=== PATIENT | female | born 1965 | race Caucasian/White ===

== ENCOUNTER 2017-02-28 08:37 | Outpatient (RCR) | payer BC, SELFPAY ==
--- NOTE | 2017-02-28 13:51 | BH.SGPN_ITS ---
Service Group Progress Note - Session Psychotherapy Session #2 Date Open:: 02/28/17 - group members Time Started:: 10:10 Time Stopped:: 11:03 Targeted Problem #:: 1 Type of Group:: Illness Management Goal of Group:: The goal of group was to increase understanding of goals and goal setting and practice a method of goal setting. Client Response/Progress/Benefit:: Client responded well to session, passive participant at times. Client reported goals give people direction and something to work toward. Client helped group set realistic goals during the activity by sharing insight to ?set small goals and work up from there.? Client appeared to benefit from increasing awareness of SMART goal setting as well as practicing in the moment coping skills. Eye Contact:: Fair Motor Activity:: Appropriate Appearance:: Neat Speech:: Appropriate Mood:: Dysthymic Affect:: Constricted Thoughts:: Linear, No evidence of hallucinations/delusions noted Staff Interventions:: Therapist facilitated group discussion about goals and goal setting. Therapist taught group the acronym SMART (Specific, Measurable, Achievable, Relevant, Timely) as a tool to help with goal setting. Therapist led the group in an activity to be used as a method of practicing goal setting. Therapist provided the group with a small beach ball and explained their goal was to keep the ball in the air for as long as possible. Therapist guided the group through the SMART acronym as group was participating in activity. Psychotherapy Session #3 Date Open:: 02/28/17 - group members Time Started:: 11:10 Time Stopped:: 12:10 Targeted Problem #:: 1 Type of Group:: Functional Skills Development Goal of Group:: The goal of group was to identify a goal for the week, explore the potential barriers to achieving that set goal, and identify strategies to overcome barriers. Client Response/Progress/Benefit:: Client responded well to session, active participant. Client created a weekly goal of communicating with three support people. Client shared this goal will benefit client as she tends to isolate and withdraw from supports when feeling depressed. Client identified her barriers as negative thinking, holding in thoughts and opinions, and avoidance. Client created strategies to overcome these barriers such as coming to IOP and ? forcing myself to talk more in group? as client reports feeling better when she communicates. Client appeared to benefit from creating a weekly goal and establishing strategies to overcome barriers. Client seems to be progressing with increased awareness of barriers and how they have kept client stuck in the past. Client also appears to be progressing as shown by her report of recognizing her early warning signs and coming back to IOP. Eye Contact:: Good Motor Activity:: Appropriate Appearance:: Neat Speech:: Appropriate Mood:: Dysthymic Affect:: Constricted Thoughts:: Linear, No evidence of hallucinations/delusions noted Staff Interventions:: Therapist explained goal setting activity to group. Therapist provided each group member with a piece of paper and asked them to write down a goal they would like to accomplish over the weekend. Therapist then asked each member to draw a path to their goal and identify barriers that could potentially get in the way of their goal. Therapist led group in processing their goal maps and had them come up with strategies to overcome the barriers. Therapist provided support by using reflective listening.
--- NOTE | 2017-02-28 14:26 | BH.SGPN ---
Service Group Progress Note - Session Psychotherapy Session #1 Date Open:: 02/28/17 Time Started:: 09:07 Time Stopped:: 10:01 Targeted Problem #:: 1 Type of Group:: Process - 5 participants
--- NOTE | 2017-03-02 15:17 | BH.SGPN ---
Service Group Progress Note - Session Psychotherapy Session #2 Date Open:: 03/02/17 group members Time Started:: 10:20 Time Stopped:: 11:15 Targeted Problem #:: 1 Type of Group:: Illness Management Goal of Group:: To increase understanding of resilience and identify the factors that contribute to building resilience. Client Response/Progress/Benefit:: Client responded well to session, active participant. Client processed the quote nodding in agreement to peers comments. Client helped the group identify factors of resiliency such as self-awareness, courage, and confidence. Client shared she has increased her self-awareness and is working to allow myself to feel and cope with emotions. Client expressed being resilient means having the courage to ask for help. Client reported that resiliency is something that is learned and developed over time as one overcomes and bounces back from hardships. Client appeared to benefit from increasing her awareness of the resiliency factors. Client progressing as shown by her report of increased emotional awareness and acceptance of help. Eye Contact:: Good Motor Activity:: Appropriate Appearance:: Neat Speech:: Appropriate Mood:: Depressed Affect:: Constricted Thoughts:: Linear, No evidence of hallucinations/delusions noted Staff Interventions:: Therapist led group in an activity that would induce a chaotic environment and used the activity as a tool in discussing the various stressors people are faced with each day. Therapist facilitated group discussion about resilience and explained the factors of building resilience. Therapist led discussion about factors that contribute to resilience. Therapist provided support by using active listening and providing feedback. Psychotherapy Session #3 Date Open:: 03/02/17 group members Time Started:: 11:21 Time Stopped:: 12:11 Targeted Problem #:: 1 Type of Group:: Functional Skills Development Goal of Group:: To rehearse resilient factors and identify ways to maintain resilience despite hardships and stressors. Client Response/Progress/Benefit:: Client responded well to session, active participant. Client identified her personal resiliency factors as being motivated to change, having awareness of warning signs and triggers, and learning to accept change. Client was receptive to supportive statements given by therapist and peers on additional resiliency traits client possesses. Client acknowledged that recognizing her warning sings early and returning to IOP demonstrates resiliency. Client wrote her personal resiliency traits on her stress ball to remind client of how she can remain resilient despite hardships. Client appeared to benefit from identifying ways in which client has demonstrated resiliency. Client progressing as evidenced by her report of increased awareness of warning signs and motivation to improve emotional regulation, but can continue to benefit from consistency and setting boundaries. Eye Contact:: Good Motor Activity:: Appropriate Appearance:: Neat Speech:: Appropriate Mood:: Depressed Affect:: Constricted Thoughts:: Linear, No evidence of hallucinations/delusions noted Staff Interventions:: Therapist led group in an activity in which group members were challenged to stay resilient despite various stressors and hardships added to activity. Therapist provided each group member with a stress ball and used stress ball as a tool to discuss factors of resilient personality. Therapist provided group members with a handout about the building blocks of resilience. Therapist provided support by using reflective listening.
--- NOTE | 2017-03-02 16:15 | BH.SGPN ---
Service Group Progress Note - Session Psychotherapy Session #1 Date Open:: 03/02/17 Time Started:: 09:09 Time Stopped:: 10:15 Targeted Problem #:: 1 Type of Group:: Process - 10 participants
--- NOTE | 2017-03-03 10:19 | BH.SGPN_ITS ---
Service Group Progress Note - Session Psychotherapy Session #2 Date Open:: 03/02/17 group members Time Started:: 10:20 Time Stopped:: 11:15 Targeted Problem #:: 1 Type of Group:: Illness Management Goal of Group:: To increase understanding of resilience and identify the factors that contribute to building resilience. Client Response/Progress/Benefit:: Client responded well to session, active participant. Client processed the quote nodding in agreement to peers? comments. Client helped the group identify factors of resiliency such as self- awareness, courage, and confidence. Client shared she has increased her self- awareness and is working to ?allow myself to feel and cope with emotions.? Client expressed being resilient means having the courage to ask for help. Client reported that resiliency is something that is learned and developed over time as one overcomes and bounces back from hardships. Client appeared to benefit from increasing her awareness of the resiliency factors. Client progressing as shown by her report of increased emotional awareness and acceptance of help. Eye Contact:: Good Motor Activity:: Appropriate Appearance:: Neat Speech:: Appropriate Mood:: Depressed Affect:: Constricted Thoughts:: Linear, No evidence of hallucinations/delusions noted Staff Interventions:: Therapist led group in an activity that would induce a chaotic environment and used the activity as a tool in discussing the various stressors people are faced with each day. Therapist facilitated group discussion about resilience and explained the factors of building resilience. Therapist led discussion about factors that contribute to resilience. Therapist provided support by using active listening and providing feedback. Psychotherapy Session #3 Date Open:: 03/02/17 group members Time Started:: 11:21 Time Stopped:: 12:11 Targeted Problem #:: 1 Type of Group:: Functional Skills Development Goal of Group:: To rehearse resilient factors and identify ways to maintain resilience despite hardships and stressors. Client Response/Progress/Benefit:: Client responded well to session, active participant. Client identified her personal resiliency factors as being motivated to change, having awareness of warning signs and triggers, and learning to accept change. Client was receptive to supportive statements given by therapist and peers on additional resiliency traits client possesses. Client acknowledged that recognizing her warning sings early and returning to IOP demonstrates resiliency. Client wrote her personal resiliency traits on her stress ball to remind client of how she can remain resilient despite hardships. Client appeared to benefit from identifying ways in which client has demonstrated resiliency. Client progressing as evidenced by her report of increased awareness of warning signs and motivation to improve emotional regulation, but can continue to benefit from consistency and setting boundaries. Eye Contact:: Good Motor Activity:: Appropriate Appearance:: Neat Speech:: Appropriate Mood:: Depressed Affect:: Constricted Thoughts:: Linear, No evidence of hallucinations/delusions noted Staff Interventions:: Therapist led group in an activity in which group members were challenged to stay resilient despite various stressors and hardships added to activity. Therapist provided each group member with a stress ball and used stress ball as a tool to discuss factors of resilient personality. Therapist provided group members with a handout about the building blocks of resilience. Therapist provided support by using reflective listening.
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
--- NOTE | 2017-03-04 13:11 | BH.DR.ITP ---
Initial Treatment Plan - Patient Information Visit Information: ADMISSION DATE: EXPECTED LOS: 4-6 weeks Diagnoses:: Bipolar disorder of 31.9. Borderline personality disorder - Problems/Symptoms Problem #1:: Mood symptoms Symptom:: Depression, anhedonia, isolative behavior, biologic disruption of sleep and appetite, suicidal ideation Problem #2:: Anxiety Symptom:: Rumination, panic
--- NOTE | 2017-03-04 14:57 | BH.SGPN ---
Service Group Progress Note - Session Psychotherapy Session #3 Date Open:: 03/04/17 Time Started:: 11:20 Time Stopped:: 12:16 Targeted Problem #:: 1 Type of Group:: Functional Skills Development - 7 participants Goal of Group:: To identify ways of defeating cognitive distortions and rehearse defeating the identified cognitive distortion. Staff Interventions:: Therapist utilized an activity as a tool in helping clients connect the amount of effort one will need to put forth to defeat cognitive distortions. Therapist provided group members with a handout to use as an aid when trying to defeat their unhelpful thinking. Therapist processed the worksheet with group members, helping them reframe the cognitive distortions.
--- NOTE | 2017-03-04 15:29 | BH.MDN ---
Multi-Disciplinary Note - Note 45-min Individual Time Started:: 09:00 Date: 03/04/17 Time Stopped:: 09:45
--- NOTE | 2017-03-07 10:36 | BH.SGPN_ITS ---
Service Group Progress Note - Session Psychotherapy Session #1 Date Open:: 18 - 9 group members Time Started:: 09:00 Time Stopped:: 10:02 Targeted Problem #:: 1 Type of Group:: Process Goal of Group:: The goal of today's group was to check-in with client's mood, stressors, and positives, and introduce topic for the day. Client Response/Progress/Benefit:: Client responded well to session, quiet, but participating when prompted by therapist. Client reports feeling ?emotional? today as client had a busy weekend. Client stated her daughter had a gender reveal democrat this weekend and client wanted to ?be happy? but felt ?numb.? With therapist elicitation, client identified cognitive distortions that are exacerbating her depressed mood such as using shoulds and coulds. Client reported isolation is a warning sign for increased depression, so client plans to spend time with positive supports this week. Client stated when she makes herself be social it feels like I'm wearing a mask which client described as exhausting. Although client feels tired from using opposite action, she stated reaching out to supports has a better outcome for client's mental wellness than isolation. Client seemed to benefit from challenging cognitive distortions and setting small goals. Eye Contact:: Fair Motor Activity:: Appropriate Appearance:: Neat Speech:: Soft Mood:: Dysthymic Affect:: Constricted Thoughts:: Linear, No evidence of hallucinations/delusions noted Staff Interventions:: Therapist used open-ended questions to elicit information about client's current stressors and mood state. Therapist was supportive by using active listening and reflection.
--- NOTE | 2017-03-07 10:40 | BH.SGPN ---
Service Group Progress Note - Session Psychotherapy Session #2 Date Open:: 03/07/17 Time Started:: 10:12 Time Stopped:: 11:12 Targeted Problem #:: 1 Type of Group:: Illness Management - 10 participants Psychotherapy Session #3 Date Open:: 03/07/17 Time Started:: 11:19 Time Stopped:: 12:20 Targeted Problem #:: 1 Type of Group:: Functional Skills Development - 8 participants
--- NOTE | 2017-03-07 15:26 | BH.MTP ---
[facility] Treatment Plan - Patient Information Program Physician:: Dr. FARIDA Piedra Primary Therapist:: Rosamaria Sandoval [facility] - Psychiatric Diagnoses Psychiatric Diagnoses:: Bipolar disorder F 31.9. Borderline personality disorder. PTSD. Anxiety unspecified. History of disordered eating. Diagnosis Code(s):: F 31.9 - Estimated LOS Estimated LOS (in weeks):: 6 Problem/Goal #1 - Problem/Goal #1 Stated Goal:: Client will increase mood stability, decrease depressive symptoms, and suicidal ideation due to Bipolar disorder through Intensive Outpatient Program. 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 Functional Impact: Pt's depressive and anxious symptoms are impacting ability to perform her work duties at [employer] due to increased stress with increased difficulty using healthy skills. Pt's social and familial relationships are strained due to pt having increased anxiety and depression in the evening which is resulting in pt taking her sleep medications in the early evening to avoid dealing with symptoms. Pt's increased isolative behavior also contributes to strain on relationships. Goal Relevant Strengths/Supports: Pt is intelligent, good self-awareness, and motivated to make changes. Pt has a supportive family. - Objectives Objective #1 Stated Objective: Client will identify and replace 2-3 negative thinking patterns that mediate feelings of hopelessness and helplessness. Interventions: Through groups and individual therapy, pt will be provided with education on cognitive distortions, mistaken beliefs, and identifying and combating negative self-talk. Therapist will help pt explore connection between thoughts, feelings, and actions. Discharge Criteria: Pt will be able to identify 2-3 negative thinking patterns and be able to effectively stop, challenge, or cope with those negative thoughts Target Date: 04/18/17 Review Date: 03/21/17 Objective #2 Stated Objective: Client will learn and implement 2-3 effective communication skills to empower client to communicate thoughts and feelings. Interventions: Therapist will teach client effective communication skills and will provide homework for client to practice communication skills outside of sessions. Discharge Criteria: Client will have met this objective when she can implement 2-3 effective communication skills that have empowered client to communicate thoughts and feelings. Target Date: 04/18/17 Review Date: 03/21/17 Problem/Goal #2 - Problem/Goal #2 Stated Goal:: Stabilize anxiety level while increasing ability to function and decreasing ruminative thoughts on a daily basis through Intensive Outpatient Program. 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 Functional Impact: Pt's depressive and anxious symptoms are impacting ability to perform her work duties at [employer] due to increased stress with increased difficulty using healthy skills. Pt's social and familial relationships are strained due to pt having increased anxiety and depression in the evening which is resulting in pt taking her sleep medications in the early evening to avoid dealing with symptoms. Pt's increased isolative behavior also contributes to strain on relationships. Goal Relevant Strengths/Supports: Pt is intelligent, good self-awareness, and motivated to make changes. Pt has a supportive family. - Objectives Objective #1 Stated Objective: Client will identify 2-3 coping strategies to use when feeling overwhelmed and anxious. Interventions: Therapist will help client process triggers to increased symptoms, and then identify ways to manage these feelings and thoughts. Therapist will also work on helping client feel less isolated and understand better behaviors and escalating tendencies. Discharge Criteria: Client will have met this goal when can safely use 1-2 coping strategies when feeling overwhelmed. Target Date: 04/18/17 Review Date: 03/21/17
--- NOTE | 2017-03-09 14:56 | BH.SGPN_ITS ---
Service Group Progress Note - Session Psychotherapy Session #1 Date Open:: 18 - 8 group members Time Started:: 09:05 Time Stopped:: 10:00 Targeted Problem #:: 1 Type of Group:: Process Goal of Group:: The goal of today's group was to check-in with client's mood, stressors, and positives, review homework, and to introduce the topic of the day. Client Response/Progress/Benefit:: Client responded well to session, quiet, but participating when prompted by therapist. Client reports feeling ?crummy? today as client is ?physically and mentally drained.? Client shared she has been struggling with negative thoughts and a depressed mood which leads client to want to isolate. Client stated she has been ?forcing? herself to spend time with others which helps to alleviate her symptoms temporarily. Client was receptive to emotional support given by therapist and peers. Client appeared to benefit from gaining awareness of how healthy versus unhealthy coping skills impact mental health. Client seems to be progressing as shown by her increases insight to warning signs and triggers, but can continue to benefit from challenging negative thoughts. Eye Contact:: Fair Motor Activity:: Appropriate Appearance:: Neat Speech:: Appropriate Mood:: Dysthymic Affect:: Flat Thoughts:: Linear, No evidence of hallucinations/delusions noted Staff Interventions:: Therapist used open-ended questions to elicit information about client's current stressors and mood. Therapist was supportive by using active listening and reflection.
--- NOTE | 2017-03-09 15:14 | BH.MDN ---
Multi-Disciplinary Note - Note 45-min Individual Time Started:: 12:30 Date: 03/09/17 Purpose of session/treatment goals addressed:: Purpose of session was to assess current symptoms and stressors. Other topics: reviewed homework from last week, challenging negative thoughts, healthy coping skills. Eye Contact:: Fair Motor Activity:: Restless - shaking leg Appearance:: Neat Speech:: Appropriate Mood:: Anxious, Depressed, Other - tearful at times Affect:: Constricted Thoughts:: Linear, No evidence of hallucinations/delusions noted Staff Interventions:: Therapist reviewed pt's homework, processing what went well and barriers that impacted pt being able to complete all her homework. Therapist used open ended questions to elicit pt's current symptoms and stressors. Therapist gently challenged pt's distorted thought patterns. Provided psychoeducation about impact of thought patterns on emotions. Provided support by using active listening and validating emotions. Client Response:: Pt responded well to session AEB being open minded and expressing thoughts and emotions. Pt reported she did get most of her homework assignments completed by doing her thought journal, trying crosswords, and word searches. She shared she also has been working with [employer] to reduce her work load and set boundaries with a particularly difficult case. Pt reported her evenings continue to be difficult with her feeling extremely anxious, antsy, and feels like Im crawling out of my skin. Pt reported she has noticed she has been taking her nighttime medications earlier and earlier each night just to escape. Recognizes this is not healthy for her because she is going to bed before 8pm and waking up before midnight and is up the rest of the night. Pt became tearful when talking about how exhausted she is of how bad her evenings are going. With further discussion pt able to connect she starts to worry about how bad the evenings will be during midday and is already worked up before the evening starts. Pt open to challenging her distorted thought patterns, asking to do board games and take a walk at night. Pt also has insight that watching her grandkids twice a week is currently exhausting her and putting her in worse shape for when evening comes. Pt open to the idea of taking a break from watching the kids until she is feeling emotionally stable. Risks/Concerns:: Pt reports passive thoughts of , denies plan or intention to date. Pt's family serves as a protective factor for pt. Progress Toward Goals/Plan:: Pt progress variable. Pt showing progress with attempting to use healthy coping skills, but struggles at times with following through with using new coping skills. Pt depressive symptoms seem to worsen at night and pt attempting to avoid feeling by taking her medications early in the evening. Pt to continue IOP to help decrease anxious and depressive symptoms. Time Stopped:: 13:15
--- NOTE | 2017-03-10 13:55 | BH.SGPN_ITS ---
Service Group Progress Note - Session Psychotherapy Session #1 Date Open:: 03/10/17 Time Started:: 09:05 Time Stopped:: 10:00 Targeted Problem #:: 1 Type of Group:: Process - 4 group members Goal of Group:: The goal of today's group was to check-in with client's mood, stressors, and positives, review homework and introduce topic for the day. Client Response/Progress/Benefit:: Client reported she came to [facility] today because yesterday she sent a really bad day which seeped into this morning. Client recognizes that if she did not come to [facility] this morning then she would of had too much free time on her hand which likely will lead to more negative thinking. Client shared she was able to communicate to her daughter and [id number] that she needed a break from babysitting her grandchildren so that she can take care of herself. Client reported communicating this to her family was extremely difficult but she is starting to recognize the need to take care of herself so that she can take care of others. Client shared she had the goal of not going to bed until 9 PM but she was able to accomplish, however her dog started to bark at her at 11 PM and she has been up ever since. Client shared she was having nightmares last night which is something she has not experienced in a long time. Client demonstrating progress as evidenced by her increasing her communication skills to support people as well as recognizing her warning signs and taking action by helping herself instead of ignoring it. Eye Contact:: Fair Motor Activity:: Restless - Leg shaking Appearance:: Neat Speech:: Appropriate Mood:: Anxious, Depressed Affect:: Constricted Thoughts:: Linear, Logical, No evidence of hallucinations/delusions noted Staff Interventions:: Therapist used open-ended questions to elicit information about client's current stressors and mood state. Therapist was supportive by using active listening and reflection.
--- NOTE | 2017-03-11 14:08 | BH.SGPN ---
Service Group Progress Note - Session Psychotherapy Session #1 Date Open:: 03/11/17 Time Started:: 09:00 Time Stopped:: 09:51 Targeted Problem #:: 1 Type of Group:: Process - 7 Participants Goal of Group:: The goal of today's group was to check-in with client's mood, stressors, and positives, review homework, and to introduce the topic of the day. Client Response/Progress/Benefit:: Client entered session alert and attentive. Client shared how she has been experiencing a migraine that has been dragging her down and stating, I have a lot of anxiety and just want to stay at home and isolate. Client shared how her made plans to go out of town this weekend and she doesnt want to go but doesnt want to tell her that. She stated her sleep has been bad and her nightmares have returned. Client indicated her emotion as anxious and depressed. Client benefitted from group by discussing concerns with peers and receiving support in return. Limited progress noted due to clients report of increased isolation, however she plans on getting out this weekend. Continued treatment necessary to increase daily functioning. Eye Contact:: Good Motor Activity:: Appropriate Appearance:: Casual Speech:: Appropriate Mood:: Euthymic, Anxious Affect:: Full Thoughts:: Linear, Logical, No evidence of hallucinations/delusions noted Staff Interventions:: Therapist used open-ended questions to elicit information about client's current stressors and mood. Therapist was supportive by using active listening and reflection. Psychotherapy Session #2 Date Open:: 03/11/17 Time Started:: 10:05 Time Stopped:: 10:55 Targeted Problem #:: 1 Type of Group:: Illness Management - 8 Participants Goal of Group:: To increase understanding of pitfalls and impact can have on mental health. Client Response/Progress/Benefit:: Client entered session alert, attentive, and willing to engage. Client connected with the days quote stating, Coming to group this time was different. Its easier to stay at home and avoid everything but it wont help you, but reaching out to support will. Client participated in group discussion on pitfalls and participated in group activity designed to help understand the impact pitfalls can have on the self. Client successfully collaborated with peers to complete activity. Client benefitted from group by identifying strategies and understanding and reducing pitfalls. Progress noted in clients ability to recognize pitfalls in life. Continued treatment necessary to decrease isolative behavior. Eye Contact:: Good Motor Activity:: Appropriate Appearance:: Casual Speech:: Appropriate Mood:: Euthymic, Anxious Affect:: Full Thoughts:: Linear, Logical, No evidence of hallucinations/delusions noted Staff Interventions:: Therapist facilitated discussion about pitfalls and assisted group in identifying common pitfalls that can set you back. Therapist led group in an activity to help group understand impact pitfalls can have on oneself and identify strategies that could help you get back on the right path. Therapist provided support by using active listening and providing feedback.
--- NOTE | 2017-03-11 21:20 | BH.SGPN ---
Service Group Progress Note - Session Psychotherapy Session #3 Date Open:: 03/11/17 Time Started:: 11:07 Time Stopped:: 12:00 Targeted Problem #:: 1 Type of Group:: Functional Skills Development Goal of Group:: To identify personal pitfalls and what keeps them stuck from moving forward. Client Response/Progress/Benefit:: Pt listened attentively to others and contributed positively to discussion. Client identified personal pitfalls to include: Lack of communication to support people, negative thoughts, being a people pleaser, and lack of self-care. Client identified being a people pleaser to be the most impactful pitfall because she tends to put other people's needs and wants ahead of hers which then impacts her negatively in the long run. Client seemed to benefit from increasing awareness of personal pitfalls as well as son to think about what patient can do to avoid identified pitfalls. Eye Contact:: Fair Motor Activity:: Appropriate Appearance:: Neat Speech:: Appropriate Mood:: Anxious, Depressed Affect:: Constricted Thoughts:: Linear, Logical, No evidence of hallucinations/delusions noted Staff Interventions:: Therapist facilitated activity in which group members were given the task to identify personal pitfalls and what keeps them stuck from moving past the pitfall. Therapist provided group members with the homework assignment of identifying strategies that can help them overcome pitfalls.
--- NOTE | 2017-03-13 21:23 | BH.SGPN_ITS ---
Service Group Progress Note - Session Psychotherapy Session #3 Date Open:: 03/11/17 Time Started:: 11:07 Time Stopped:: 12:00 Targeted Problem #:: 1 Type of Group:: Functional Skills Development Goal of Group:: To identify personal pitfalls and what keeps them stuck from moving forward. Client Response/Progress/Benefit:: Pt listened attentively to others and contributed positively to discussion. Client identified personal pitfalls to include: Lack of communication to support people, negative thoughts, being a people pleaser, and lack of self-care. Client identified being a people pleaser to be the most impactful pitfall because she tends to put other people' s needs and wants ahead of hers which then impacts her negatively in the long run. Client seemed to benefit from increasing awareness of personal pitfalls as well as son to think about what patient can do to avoid identified pitfalls. Eye Contact:: Fair Motor Activity:: Appropriate Appearance:: Neat Speech:: Appropriate Mood:: Anxious, Depressed Affect:: Constricted Thoughts:: Linear, Logical, No evidence of hallucinations/delusions noted Staff Interventions:: Therapist facilitated activity in which group members were given the task to identify personal pitfalls and what keeps them stuck from moving past the pitfall. Therapist provided group members with the homework assignment of identifying strategies that can help them overcome pitfalls.
--- NOTE | 2017-03-14 11:20 | BH.SGPN_ITS ---
Service Group Progress Note - Session Psychotherapy Session #2 Date Open:: 03/09/17 Time Started:: 10:15 Time Stopped:: 11:07 Targeted Problem #:: 1 Type of Group:: Illness Management - 8 group members Goal of Group:: To increase understanding how positive and negative forces in life can impact balance in life. Client Response/Progress/Benefit:: Client listened attentively to others and was mostly quiet during discussion illness listened by therapist. Client appeared to connect with others comments about the need to put forth some effort in order to see personal growth because one is not just going to get better by chance. During activity client remained quiet for the majority of the challenge at times would communicate some of her ideas and thoughts. Client seemed to benefit from increasing awareness of the impact positive negative forces can have on ones progress as well as understanding the importance of having balance between forces. Eye Contact:: Fair Motor Activity:: Appropriate Appearance:: Neat Speech:: Appropriate Mood:: Depressed Affect:: Constricted Thoughts:: Linear, Logical, No evidence of hallucinations/delusions noted Staff Interventions:: Therapist facilitated group discussion about the various forces of life and helped clients connect the impact they have on balance in life. Therapist led group in an experiential activity in which group members had to work together to balance an object and move it to a designated location. Therapist utilized the activity as a tool to process the challenges connected with balancing various forces. Psychotherapy Session #3 Date Open:: 03/09/17 Time Started:: 11:17 Time Stopped:: 12:15 Targeted Problem #:: 1 Type of Group:: Functional Skills Development Goal of Group:: To identify positive and negative forces in life and identify which forces are helping stability and which forces are contributing to instability. Client Response/Progress/Benefit:: Client listened attentively to others and contributed if elicited by therapist. Client reported her positive forces to include communication, family, friends, using positive coping. Client reported her negative forces to include negative thoughts, isolation, not communicating, work, over commitment of time. Feeling that her forces are currently not balance with her negative forces being more powerful. Identified negative thoughts and not communicating to be her most impactful forces that are keeping her from making the progress she wants. Seemed to benefit from increasing awareness of her positive and negative forces as well as identifying which forces are currently having the greatest impact on her progress. Eye Contact:: Fair Motor Activity:: Appropriate Appearance:: Neat Speech:: Appropriate Mood:: Depressed Affect:: Constricted Thoughts:: Linear, Logical, No evidence of hallucinations/delusions noted Staff Interventions:: Therapist provided group with an example of a scenario of a person and the individual???s positive and negative forces. Therapist provided each group member with a worksheet in which they were to identify five positive and five negative forces in their life. Therapist processed the activity with the group, helping others connect the impact certain forces have on their life balance.
--- NOTE | 2017-03-14 14:03 | BH.SGPN ---
Service Group Progress Note - Session Psychotherapy Session #2 Date Open:: 03/14/17 - 7 group members Time Started:: 10:23 Time Stopped:: 11:20 Targeted Problem #:: 1 Type of Group:: Illness Management Goal of Group:: To identify the importance of change, increase understanding of difficulty of making change, identify what clients would like to make changes in and identify the barriers or obstacles that get in the way of change. Client Response/Progress/Benefit:: Client responded well to session, quiet, but participating when prompted. Client processed the quote, nodding in agreement to peers? comments. Client helped group identify difficulties associated with making change such as fear, avoidance, comfort, mental health, and anxiety. Client identified changes she would like to make this week such as setting boundaries at work, using thought-stopping, and practicing self-care. Client reported these changes would reduce stress and negative thinking. Client identified her barriers to be guilt, negative thoughts, and ?reliving? the past. Client appeared to benefit from gaining awareness of her barriers that prevent client from making changes as well as identifying changes that would positively impact her mental health and functioning. Client progressing with identifying small goals to improve mental health, but can continue to benefit from challenging negative thoughts. Eye Contact:: Good Motor Activity:: Appropriate Appearance:: Neat Speech:: Appropriate Mood:: Dysthymic Affect:: Constricted Thoughts:: Linear, No evidence of hallucinations/delusions noted Staff Interventions:: Therapist facilitated discussion about change and helped client?s make connections of why change is important. Therapist led group in an experiential activity which involved client?s identifying changes want to make and barriers that get in the way of making those changes. Therapist utilized activity as a tool to help client?s make connections of difficulties in making changes and identify what helps overcome barriers to change. Psychotherapy Session #3 Date Open:: 03/14/17 - 6 group members Time Started:: 11:28 Time Stopped:: 12:20 Targeted Problem #:: 1 Type of Group:: Functional Skills Development Goal of Group:: To identify specific barriers to an identified change want to make and identify ways to overcome those barriers. Client Response/Progress/Benefit:: Client responded well to session, providing good insight to group discussion. Client identified her goal this week as setting more boundaries at work. Client shared her barriers are negative thinking, procrastination, and guilt. Client created strategies to accomplish this change such as doing a cost benefit analysis of setting boundaries, practicing thought stopping strategies, and challenging guilt. Client seemed to benefit from developing strategies to overcome barriers so client can reach her goals. Client progressing with implementing thought challenging strategies, but can continue to benefit from managing her stress at work. Eye Contact:: Good Motor Activity:: Appropriate Appearance:: Neat Speech:: Appropriate Mood:: Dysthymic Affect:: Constricted Thoughts:: Linear, No evidence of hallucinations/delusions noted Staff Interventions:: Therapist facilitated discussion about what helped the group overcome challenges that came about during the experiential activity. Therapist utilized the activity as a tool in relating those experiences to ways to overcome barriers with challenges in their life when trying to make change. Therapist group into smaller groups and had them brainstorm ways to overcome certain barriers to their identified change. Therapist provided support by using reflective listening and providing feedback.
--- NOTE | 2017-03-14 15:26 | BH.MTP_ITS ---
Master Treatment Plan - Patient Information Program Physician:: Dr. FARIDA Piedra Primary Therapist:: Rosamaria Sandoval [facility] - Psychiatric Diagnoses Psychiatric Diagnoses:: Bipolar disorder F 31.9. Borderline personality disorder. PTSD. Anxiety unspecified. History of disordered eating. Diagnosis Code(s):: F 31.9 - Estimated LOS Estimated LOS (in weeks):: 6 Problem/Goal #1 - Problem/Goal #1 Stated Goal:: Client will increase mood stability, decrease depressive symptoms , and suicidal ideation due to Bipolar disorder through Intensive Outpatient Program. 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 Functional Impact: Pt's depressive and anxious symptoms are impacting ability to perform her work duties at [employer] due to increased stress with increased difficulty using healthy skills. Pt's social and familial relationships are strained due to pt having increased anxiety and depression in the evening which is resulting in pt taking her sleep medications in the early evening to avoid dealing with symptoms. Pt's increased isolative behavior also contributes to strain on relationships. Goal Relevant Strengths/Supports: Pt is intelligent, good self-awareness, and motivated to make changes. Pt has a supportive family. - Objectives Objective #1 Stated Objective: Client will identify and replace 2-3 negative thinking patterns that mediate feelings of hopelessness and helplessness. Interventions: Through groups and individual therapy, pt will be provided with education on cognitive distortions, mistaken beliefs, and identifying and combating negative self-talk. Therapist will help pt explore connection between thoughts, feelings, and actions. Discharge Criteria: Pt will be able to identify 2-3 negative thinking patterns and be able to effectively stop, challenge, or cope with those negative thoughts Target Date: 04/18/17 Review Date: 03/21/17 Objective #2 Stated Objective: Client will learn and implement 2-3 effective communication skills to empower client to communicate thoughts and feelings. Interventions: Therapist will teach client effective communication skills and will provide homework for client to practice communication skills outside of sessions. Discharge Criteria: Client will have met this objective when she can implement 2 -3 effective communication skills that have empowered client to communicate thoughts and feelings. Target Date: 04/18/17 Review Date: 03/21/17 Problem/Goal #2 - Problem/Goal #2 Stated Goal:: Stabilize anxiety level while increasing ability to function and decreasing ruminative thoughts on a daily basis through Intensive Outpatient Program. 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 Functional Impact: Pt's depressive and anxious symptoms are impacting ability to perform her work duties at [employer] due to increased stress with increased difficulty using healthy skills. Pt's social and familial relationships are strained due to pt having increased anxiety and depression in the evening which is resulting in pt taking her sleep medications in the early evening to avoid dealing with symptoms. Pt's increased isolative behavior also contributes to strain on relationships. Goal Relevant Strengths/Supports: Pt is intelligent, good self-awareness, and motivated to make changes. Pt has a supportive family. - Objectives Objective #1 Stated Objective: Client will identify 2-3 coping strategies to use when feeling overwhelmed and anxious. Interventions: Therapist will help client process triggers to increased symptoms , and then identify ways to manage these feelings and thoughts. Therapist will also work on helping client feel less isolated and understand better behaviors and escalating tendencies. Discharge Criteria: Client will have met this goal when can safely use 1-2 coping strategies when feeling overwhelmed. Target Date: 04/18/17 Review Date: 03/21/17
--- NOTE | 2017-03-15 11:55 | BH.SGPN_ITS ---
Service Group Progress Note - Session Psychotherapy Session #1 Date Open:: 03/15/17 Time Started:: 09:06 Time Stopped:: 09:56 Targeted Problem #:: 1 Type of Group:: Process - 3 Participants Goal of Group:: The goal of today's group was to check-in with client's mood, stressors, and positives, review homework, and to introduce the topic of the day. Client Response/Progress/Benefit:: Client entered session alert, attentive, and willing to engage. Client was a big contributor in group and provided support to peers. Client reported not sleeping well due to a cough which has been affecting her throughout the day. Client shared how she has been facing various stressors including her daughter who is and moving and states, ?She?s my youngest and when she is stressed out it just makes me worry about her,? and , ??when I try to support her it makes me more anxious.? She went on to share about how she has placed work on the back burner and now she is going to be forced to deal with it. 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 Lastly, client shared that she feels helpless when it comes to her sister because, ?I can only be so strong for her but when I?m done I crash.? Therapist discussed taking on others emotions and client stated, ?Oh I definitely do that. That?s why my evenings are always so bad and I just isolate.? Client benefitted from group by developing ways to decrease job stress, one being sticking to her schedule. Progress noted in client?s insight into her stressors and understanding how they are affecting her. Continued treatment necessary to decrease anxiety and improve functioning. Eye Contact:: Good Motor Activity:: Appropriate Appearance:: Casual Speech:: Appropriate Mood:: Anxious Affect:: Full Thoughts:: Linear, Logical, No evidence of hallucinations/delusions noted Staff Interventions:: Therapist used open-ended questions to elicit information about client's current stressors and mood. Therapist was supportive by using active listening and reflection.
--- NOTE | 2017-03-15 14:55 | BH.MDN ---
Multi-Disciplinary Note - Note 30-min Individual Time Started:: 12:30 Date: 03/15/17 Purpose of session/treatment goals addressed:: The purpose of session was to assess current symptoms and stressors. Other topics included: communication, setting boundaries, and reducing stressors. Eye Contact:: Fair Motor Activity:: Restless - leg shaking Appearance:: Casual Speech:: Appropriate Mood:: Anxious Affect:: Constricted Thoughts:: Linear, Logical, No evidence of hallucinations/delusions noted Staff Interventions:: Therapist used open ended questions to elicit pt's current symptoms and stressors. Therapist processed pt's weekend, assisting pt with identifying positives. Therapist reviewed previous session's homework; discussed what's helping the evening. 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 Provided support by using active listening. Client Response:: Pt reported her weekend was eventful. She explained she went to [place] with her for their anniversary, spent time at the casino. Pt shared while at dinner around 6pm pt started to feel antsy and anxious, wanting to leave the restaurant at that moment. Pt reported she was able to get through the meal, but as soon as she got to the hotel she went to sleep before 8pm. Pt reported continuing to not sleep more than 2 hours at a time and believes the lack of sleep is impacting her mental health. Pt reported most nights she has been not going to bed until 9pm, but is still waking up two hours later. Pt shared she is seeing improvement with being able to manage her anxieties prior to bedtime, but doesn't know what to do to extend her sleep. Pt to meet with outpatient psychiatrist tomorrow to talk about her sleep. 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 Pt shared she had tried a strategy to reduce stress from the case, but that strategy did not help. 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 Risks/Concerns:: Pt reports passive thoughts of , no plan or intention. Future focused. Supportive family. Grandchildren serve as protective factor. Progress Toward Goals/Plan:: Pt demonstrating progress AEB pt using healthy skills in the evenings to extend the time of her bedtime instead of taking her nighttime medications to avoid dealing with her emotions. 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 Pt to continue IOP to maintain gains and prevent decompensation. Time Stopped:: 13:00
--- NOTE | 2017-03-16 11:10 | BH.SGPN_ITS ---
Service Group Progress Note - Session Psychotherapy Session #2 Date Open:: 03/15/17 Time Started:: 10:10 Time Stopped:: 11:02 Targeted Problem #:: 1 Type of Group:: Illness Management Goal of Group:: To increase understanding of what stress is, identify current life stressors, and connect impact stressors have on mental health. Client Response/Progress/Benefit:: Client reported it is difficult to choose one thought over another which is why she uses a thought journal which helps her pinpoint her irrational thought patterns and makes it a lot easier to be able to challenge those thoughts. Client reported if she does not use those types of skills and she will often talk herself out of trying to be positive because negative takes over. Client recognizes the impact negative thought patterns can have on increasing stress level. Client reported her current stressors to include: Recent family deaths, migraines, work, negative thoughts, not sleeping, family, and upcoming surgery. 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 Client reports she started to engage in some of these unhealthy skills but has awareness of what she is doing so she can change it. Client reported migraines, work and not sleeping to be her biggest stressors currently. Client seemed benefit from increasing awareness of her current stressors as well as to awareness of the impact her reaction to increased stress has on her mental health. Eye Contact:: Fair Motor Activity:: Restless - Shaking legs Appearance:: Casual Speech:: Appropriate Mood:: Anxious, Dysthymic Affect:: Constricted Thoughts:: Linear, Logical, No evidence of hallucinations/delusions noted Staff Interventions:: Therapist facilitated discussion about stress. Therapist facilitated an activity in which group members were asked to identify various stressors they have in their life currently. Therapist instructed group members to indicate if certain stressors were larger than others. Therapist led processing of each member???s stress jar and helped them connect impact the stress has on their mental health. Psychotherapy Session #3 Date Open:: 03/15/17 Time Started:: 11:15 Time Stopped:: 12:10 Targeted Problem #:: 1 Type of Group:: Functional Skills Development Goal of Group:: To identify what stressors have control over and what stressors have no control over. Another goal was to increase awareness of healthy strategies that can help relieve stress level. Client Response/Progress/Benefit:: Client able to identify which stressors are currently in and out of her control. She recognized she often puts forth more effort and time into thinking and worrying about the stressors she does not have any control over. During challenge activity client worked cooperatively with others and was encouraging to another peer. Client connected with several of the strategies the group reviewed that could be beneficial to relieving stress. Seemed to benefit from increasing her reperotire of stress relieving strategies. Eye Contact:: Fair Motor Activity:: Restless Appearance:: Casual Speech:: Appropriate Mood:: Anxious, Dysthymic Affect:: Constricted Thoughts:: Linear, Logical, No evidence of hallucinations/delusions noted Staff Interventions:: Therapist facilitated discussion about control versus no control and helped group members connect the concept to stressors. Therapist led an activity in which group members had to manage their stress level during a series of frustrating tasks. Therapist processed with group what skills each group member utilized in order to manage their emotions in stress level during the activity. Therapist read a handout and reviewed the handout about stress relieving skills and strategies.
--- NOTE | 2017-03-21 14:10 | BH.SGPN_ITS ---
Service Group Progress Note - Session Psychotherapy Session #1 Date Open:: 03/11/17 Time Started:: 09:00 Time Stopped:: 09:51 Targeted Problem #:: 1 Type of Group:: Process - 7 Participants Goal of Group:: The goal of today's group was to check-in with client's mood, stressors, and positives, review homework, and to introduce the topic of the day. Client Response/Progress/Benefit:: Client entered session alert and attentive. Client shared how she has been experiencing a migraine that has been dragging her down and stating, ?I have a lot of anxiety and just want to stay at home and isolate.? Client shared how her made plans to go out of town this weekend and she doesn?t want to go but doesn?t want to tell her that. She stated her sleep has been bad and her nightmares have returned. Client indicated her emotion as anxious and depressed. Client benefitted from group by discussing concerns with peers and receiving support in return. Limited progress noted due to client?s report of increased isolation, however she plans on getting out this weekend. Continued treatment necessary to increase daily functioning. Eye Contact:: Good Motor Activity:: Appropriate Appearance:: Casual Speech:: Appropriate Mood:: Euthymic, Anxious Affect:: Full Thoughts:: Linear, Logical, No evidence of hallucinations/delusions noted Staff Interventions:: Therapist used open-ended questions to elicit information about client's current stressors and mood. Therapist was supportive by using active listening and reflection. Psychotherapy Session #2 Date Open:: 03/11/17 Time Started:: 10:05 Time Stopped:: 10:55 Targeted Problem #:: 1 Type of Group:: Illness Management - 8 Participants Goal of Group:: To increase understanding of pitfalls and impact can have on mental health. Client Response/Progress/Benefit:: Client entered session alert, attentive, and willing to engage. Client connected with the day?s quote stating, ?Coming to group this time was different. It?s easier to stay at home and avoid everything but it won?t help you, but reaching out to support will.? Client participated in group discussion on pitfalls and participated in group activity designed to help understand the impact pitfalls can have on the self. Client successfully collaborated with peers to complete activity. Client benefitted from group by identifying strategies and understanding and reducing pitfalls. Progress noted in client?s ability to recognize pitfalls in life. Continued treatment necessary to decrease isolative behavior. Eye Contact:: Good Motor Activity:: Appropriate Appearance:: Casual Speech:: Appropriate Mood:: Euthymic, Anxious Affect:: Full Thoughts:: Linear, Logical, No evidence of hallucinations/delusions noted Staff Interventions:: Therapist facilitated discussion about pitfalls and assisted group in identifying common pitfalls that can set you back. Therapist led group in an activity to help group understand impact pitfalls can have on oneself and identify strategies that could help you get back on the right path. Therapist provided support by using active listening and providing feedback.
== END 2017-03-16 23:59 ==
LOC: BHIOP 08:37
PROVIDERS: Visit Provider Psychiatry & Neurology Psychiatry
DX: F31.9 Bipolar disorder, unspecified (principal); F60.3 Borderline personality disorder; F43.10 Post-traumatic stress disorder, unspecified; F41.9 Anxiety disorder, unspecified; K21.9 Gastro-esophageal reflux disease without esophagitis; K44.9 Diaphragmatic hernia without obstruction or gangrene; G43.909 Migraine, unspecified, not intractable, without status migrainosus; Z79.899 Other long term (current) drug therapy
CPT/HCPCS: H0035; 90832; 90834; 90853

== ENCOUNTER 2017-03-18 08:48 | Outpatient (RCR) | payer BC, SELFPAY ==
[2016-07-16 13:52] VITALS: BP 128/87
--- NOTE | 2017-03-18 12:07 | PCM.PN.BLA ---
Progress Note Patient is seen in follow-up for bipolar 1 disorder F 31.9, borderline personality disorder, PTSD, anxiety, bereavement. History is been obtained per interview with patient, discussion with staff, review of chart. Case discussed with treatment team. Chief complaint I wanted to touch base because of medication changes Interim history Patient reports she discontinued her Rexalti and started Tegretol ER 200 mg p.o. twice daily on Tuesday per recommendation of Dr. Mendoza. Moderate depressive symptoms persist but she notes some mood improvement yesterday. She has ongoing grief regarding the of her niece and interactions with her sister. She also identifies increased anxiety and traumatic memories triggered after running into an old counselor. She has chronic thoughts of suicide which are overall decreased in intensity. She denies specific suicide plan or intent. No homicidal ideation. No symptoms consistent with psychosis. Sleeping from 8 PM to 11 PM. She then dozes on and off throughout the night. Her insomnia is chronic. Appetite fair. Some mild nausea and diarrhea which she associates with starting the Tegretol. Compliant with medication including Tegretol ER 200 mg p.o. ,twice daily Prozac 60 mg p.o. daily, clonidine and Ambien ER 6.25 mg p.o. nightly. Mental status exam Patient is alert and oriented in no acute distress ;she is ambulatory with normal gait and station ;she is casually dressed and groomed wearing a long sleeve shirt and jeans ;she is cooperative with the interview ;she has good eye contact ;she has appropriate grooming and hygiene. There is no psychomotor agitation or retardation. Mood is depressed but improved. Affect tearful and congruent. Speech is clear and of regular rate and volume. Language fluent. Thought process organized. Associations logical. Thought content significant for ruminative anxiety and chronic thoughts of . No current suicide plan or intent. Feels able to maintain safety. No homicidal ideation related to detected. No evidence of psychosis related or detected. Immediate recent and remote memory grossly intact. Attention and concentration are fair to good. Estimated intelligence fund of knowledge average. Judgment and insight are improving Labs and testing patient has requisition for Tegretol level to be obtained next week. Diagnosis Bipolar disorder of 31.9 Borderline personality disorder PTSD Anxiety unspecified History of disordered eating Plan Continue IOP as the structured setting is necessary to maintain gains and prevent decompensation. Risks benefits alternatives of medications discussed with patient. Patient acknowledges understanding. Continue Tegretol ER 200 mg p.o. twice daily. Obtain lab work next week. Continue Prozac 60 mg daily. Consider decreasing the Prozac in future. Discussed risk of mood destabilization with SSRIs in bipolar disorder. Continue follow-up with Dr. Jacquelyn Mendoza as scheduled next week. Recommended reading book calm seas. Continue individual with Shanta Pérez. 20 minutes of Insight oriented psychotherapy provided regarding trauma and grief. Patient acknowledges understanding and is in agreement with plan. She feels able to maintain safety. She agrees to seek help or emergency care feeling unsafe to self or others.
--- NOTE | 2017-03-18 13:41 | BH.SGPN ---
Service Group Progress Note - Session Psychotherapy Session #2 Date Open:: 03/18/17 Time Started:: 10:10 Time Stopped:: 11:15 Targeted Problem #:: 1 Type of Group:: Illness Management Goal of Group:: The goal of group was to increase understanding of coping strategies and impact problems have on self. Another goal was to practice utilizing coping skills in the moment. Client Response/Progress/Benefit:: Client listened attentively to others and shared her thoughts and feelings during discussion. Connected with the quote reporting there have been many times in which she is engaged in a healthy coping skills like isolation or not communicating with her support people which is only made the situation worse. Client reported on the barriers to not utilizing healthy coping strategies is comfort zone because it seems easier to use what you know versus trying something new because he might fail. During activity client tend to be quiet and listened to others' ideas able to manage her anxieties throughout. Seemed to benefit from group discussion about strategies that can help increase utilization of healthy coping strategies. Eye Contact:: Fair Motor Activity:: Restless Appearance:: Neat Speech:: Appropriate Mood:: Anxious, Dysthymic Affect:: Constricted Thoughts:: Linear, Logical, No evidence of hallucinations/delusions noted Staff Interventions:: Therapist facilitated the group discussion about coping strategies. Therapist group and activity challenge them to work together in utilize healthy coping skills in the moment. Therapist utilized the activity as a tool to process what it feels like when dealing with problems and what strategies they used to cope throughout activity.
--- NOTE | 2017-03-18 16:40 | BH.SGPN ---
Service Group Progress Note - Session Psychotherapy Session #1 Date Open:: 03/18/17 Time Started:: 09:00 Time Stopped:: 10:00 Type of Group:: Process - 4 group members Goal of Group:: The goal of today's group was to check-in with client's mood, stressors, and positives, review homework and introduce topic for the day. Client Response/Progress/Benefit:: Pt was attentive during group discussions and spoke when prompted. Emotion for today was anxious. Shared with the group that she has had multiple medical appointments this week and is going to pursue bariatric surgery. She is excited about the surgery however concerned. Also reports that her psychiatrist had changed some of her medications which always affects me. Reports decreased sleep and increased anxiety. She feels that she is managing her stressors appropriately and is not letting her thoughts or emotions get overwhelming. Progress noted as appears to be utilizing her coping skills, support, and thought stopping techniques to manage her stressors. Also not relying on inappropriate coping skills. Group praised her for her efforts. Benefited from group support and praise. Continued treatment to prevent decompensation and decrease anxiety/depression. Eye Contact:: Fair Motor Activity:: Appropriate Speech:: Soft Mood:: Anxious, Depressed Affect:: Congruent Thoughts:: Linear, Logical, No evidence of hallucinations/delusions noted Staff Interventions:: Therapist used open-ended questions to elicit information about client's current stressors and mood state. Therapist was supportive by using active listening and reflection.
--- NOTE | 2017-03-21 14:12 | BH.SGPN_ITS ---
Service Group Progress Note - Session Psychotherapy Session #2 Date Open:: 03/21/17 Time Started:: 10:11 Time Stopped:: 11:08 Targeted Problem #:: 1 Type of Group:: Illness Management - 5 Participants Goal of Group:: To increase understanding of fear and explore the negative impact fear of failure can have on mental health and decision making. Client Response/Progress/Benefit:: Client entered session alert, attentive, and willing to engage. Client defined what failure means to her as, ?not being successful at what you?re trying to accomplish.? Client collaborated with peers to complete a group activity designed to test how individuals manage failure in their own lives. Client was an active participant in activity and provided encouragement to peers. Client was able to successfully complete activity, despite multiple setbacks and feeling discouraged. Client benefitted from group by processing what failure means and how fear of it can impact decision making. Progress noted in client?s ability to take an active role throughout and use healthy coping skills to manage stressors. Continued treatment necessary to stabilize anxiety levels. Eye Contact:: Good Motor Activity:: Appropriate Appearance:: Casual Speech:: Appropriate Mood:: Anxious - bouncing legs Affect:: Full Thoughts:: Linear, Logical, No evidence of hallucinations/delusions noted Staff Interventions:: Therapist facilitated discussion about fear and impact fear of failure can have. Therapist led group in an experiential activity in which client?s would fail numerous times throughout, but were given the opportunity to try again. Therapist led the processing of the activity and assisted clients with connecting how fear of failure impacted their decision making during the activity.
--- NOTE | 2017-03-21 15:42 | BH.SGPN ---
Service Group Progress Note - Session Psychotherapy Session #1 Date Open:: 03/21/17 Time Started:: 09:05 Time Stopped:: 10:00 Targeted Problem #:: 1 Type of Group:: Process Goal of Group:: The goal of today's group was to check-in with client's mood, stressors, and positives, review homework and introduce topic for the day. Client Response/Progress/Benefit:: Client reported over the weekend she was continuing to have coughing issues which made her go [facility] and eventually she was sent to the hospital and found that she had bronchitis. Client reported most of her weekend was spent resting but she did go to breakfast with her son and [id number]. Client reported she had a medication change last week and is having another change this week which she is hopeful is going to help her mood stability and sleep but the same time she knows medication changes can be tough for her. Shared her sleep is continuing to be terrible and the coughing is only making that worse. Expressed feeling anxious and contributed that to the medication change. Reported she was up at 1 AM with having lots of energy and typically will crash around 4 PM or 5 PM and only get up to 3 hours of sleep in the evening. Client shared despite things not doing alright now she is able to note that a positive for tomorrow is spending time with her grandkids taking them sliding for the first time. Client showing progress as evidenced by her being able to pinpoint some positive from her day even when she is having a rough time. Eye Contact:: Fair Motor Activity:: Restless Speech:: Appropriate Mood:: Anxious Affect:: Constricted Thoughts:: Linear, Logical, No evidence of hallucinations/delusions noted Staff Interventions:: Therapist used open-ended questions to elicit information about client's current stressors and mood state. Therapist was supportive by using active listening and reflection.
--- NOTE | 2017-03-22 11:54 | BH.SGPN_ITS ---
Service Group Progress Note - Session Psychotherapy Session #3 Date Open:: 03/21/17 Time Started:: 11:15 Time Stopped:: 12:17 Targeted Problem #:: 1 Type of Group:: Functional Skills Development - 5 participants Goal of Group:: To identify the impact fear of failure has had on the group members lives and identify strategies to overcome fear of failure. Client Response/Progress/Benefit:: Client attentive and well engaged in both the activity and discussion portions of the session. Client worked with all participants in order to complete the remainder of the activity as well as process real world application. Client discussed that the barriers experienced by the group during activity are similar with the barriers she has in overcoming her own fear of failure such as trying to solve things on her own or becoming impatient. Client benefited from the reflection portion in which individuals identified ways in which their own fear of failure has prevented them from doing or calm pushing things. Client indicated fear of failure as preventing her from asserting firm boundaries and saying no to things when she is unable to do them. Client displayed progress in her ability to identify realistic means for challenging these thoughts as well as personal potential negative implications maintaining these thoughts may have. Client recommended to need IOP in order to further improve ability to challenge and replace negative thoughts as well as maintain mood stability during times of increased stressors. Eye Contact:: Good Motor Activity:: Appropriate Appearance:: Casual Speech:: Appropriate Mood:: Dysthymic Affect:: Full Thoughts:: Linear, Logical, No evidence of hallucinations/delusions noted Staff Interventions:: Therapist provided each group member with a worksheet to complete that asked questions about their experiences with fear of failure. Therapist led the processing of the worksheet, helping client?s connect how fear of failure has impacted them. Therapist provided support by using active listening and providing feedback.
--- NOTE | 2017-03-23 10:21 | BH.SGPN_ITS ---
Service Group Progress Note - Session Psychotherapy Session #1 Date Open:: 03/23/17 - 4 participants Time Started:: 09:10 Time Stopped:: 10:00 Targeted Problem #:: 1 Type of Group:: Process Goal of Group:: The goal of today's group was to check-in with client's mood, stressors, and positives, review homework and introduce topic for the day. Client Response/Progress/Benefit:: Client responded well to session, receptive to feedback and providing supportive statements to peers. Client reports feeling apprehensive and anxious today as client has been going through medication changes which is impacting client's sleep and mood. Client shared I have a good team helping me with my meds it just takes time to adjust. Client reported it was very important she made it to group today as client shares group improves client's mood and outlook. Client stated she currently has nervous energy, and reports belief she will crash later. Client was receptive to group and therapist feedback for healthy strategies to reduce anxiety and depression throughout the day and prevent ?crashing.? Client appeared to benefit from problem-solving coping strategies as well as acknowledging progress. Client progressing as evidenced by her willingness to utilize healthy supports when client feels depressed, but can continue to benefit from challenging negative thinking. Eye Contact:: Good Motor Activity:: Restless - somewhat, shaking leg Appearance:: Neat Speech:: Appropriate Mood:: Anxious, Dysthymic Affect:: Constricted Thoughts:: Linear, No evidence of hallucinations/delusions noted Staff Interventions:: Therapist used open-ended questions to elicit information about client's current stressors and mood state. Therapist was supportive by using active listening and reflection.
--- NOTE | 2017-03-23 14:42 | BH.SGPN ---
Service Group Progress Note - Session Psychotherapy Session #2 Date Open:: 03/23/17 Time Started:: 10:15 Time Stopped:: 11:08 Targeted Problem #:: 1 Type of Group:: Illness Management - 4 group members Goal of Group:: To increase self-awareness of current reality in regards to mental wellness and desired mental wellness. Client Response/Progress/Benefit:: Client contributed to discussion and listened attentively to others. Client connected with the quote that she tends to put tougher barriers on herself compared to the barriers others place in front of her. Client identified current reality to feel like she is stuck, spinning wheels with little forward progress. Client shared her desired reality to have increased positive thoughts, using supports, setting boundaries, and feeling more stable. Client seemed to benefit from increasing awareness of a future goal for her mental health. Eye Contact:: Fair Motor Activity:: Restless Appearance:: Neat Speech:: Appropriate Mood:: Anxious Affect:: Congruent Thoughts:: Linear, Logical, No evidence of hallucinations/delusions noted Staff Interventions:: Therapist facilitated group discussion about current reality in regards to mental health. Client provided each group member a piece of paper and asked them to draw their current reality. Therapist led the processing of each group members drawing. Therapist provided each group member with a second piece of paper and asked clients to draw desired mental wellness. Therapist processed each group members drawing, helping clients connect the two realities. Psychotherapy Session #3 Date Open:: 03/23/17 Time Started:: 11:20 Time Stopped:: 12:10 Targeted Problem #:: 1 Type of Group:: Functional Skills Development - 4 group members Goal of Group:: To identify obstacles in clients path to mental wellness and identify which obstacles clients have control over and dont have control over. Client Response/Progress/Benefit:: Client contributed to discussion and worked cooperatively with others during group activity. Client identified personal barriers that are keeping her from desired reality include: not setting boundaries, high expectations of self, distorted thought process, mind reading, not using supports, and isolation. Client identified mind reading to be the biggest barrier because she does not so frequently and it impacts her ability to make changes. When processing activity client able to connect the importance of asking for help and communicating in order to overcome obstacles and barriers in life. Seemed to benefit from the group brainstorming various ways to overcome specific barriers. Eye Contact:: Fair Motor Activity:: Restless Appearance:: Neat Speech:: Appropriate Mood:: Anxious Affect:: Congruent Thoughts:: Linear, Logical, No evidence of hallucinations/delusions noted Staff Interventions:: Therapist facilitated group discussion about obstacles and the hesitations of overcoming obstacles. Client led group in discussion about what obstacles they have control over and which obstacles are out of their control. Therapist helped clients connect how each obstacle is preventing them from achieving their desired reality. Therapist provided support by using reflective listening and providing feedback.
--- NOTE | 2017-03-23 15:45 | BH.MDN ---
Multi-Disciplinary Note - Note 45-min Individual Time Started:: 12:20 Date: 03/23/17 Purpose of session/treatment goals addressed:: Purpose of session was to assess pt's current symptoms and stressors. Other topics: strategies and ideas to reduce mental health symptoms. Eye Contact:: Fair Motor Activity:: Restless Appearance:: Neat Speech:: Appropriate Mood:: Anxious, Depressed Affect:: Constricted Thoughts:: Linear, Logical, No evidence of hallucinations/delusions noted Staff Interventions:: Therapist utilized open ended questions to elicit pt's current symptoms and stressors. Therapist utilized motivational interviewing techniques to help increase pt's motivation to make a change in her current situation. Therapist processed decisional balance worksheet. Discussed strategies that can help pt maintain success once discharge from IOP. Client Response:: Pt responded well to session AEB pt expressing thoughts and ideas as well as engaging in activities. Pt reported continuing to have a lot of stress in regards to her [employer] work. Shared there are increasing amount of times that she has thought about quitting, but then starts thinking she will be a failure if she does that. Pt worked with therapist to create her decisional balance chart. Pt able to identify the posities and negatives to changing and not changing. Pt recognized the consequences of not changing would likely result in increased mental health symptoms, more stress, feeling overwhelmed, and staying stuck. Shared she doesn't want those things to occur, coming to realization she will need to make a change soon in order to prevent those things from happening. With coaching able to see that majority of the negatives of changing are things that she can control because it is her negative and distorted thought patterns that are keeping her stuck. Pt agreeable to think about what was discussed today and identify when she will make a decision about the current stressor. During discussion of discharge from IOP pt agreed it will be important for her to add support to her routine. Shared she will talk with her psychiatrist about joining the DBT group provided at the psychiatry office. Risks/Concerns:: Pt continues to have passive thoughts of , denies suicidal plan or intention to date. Future focused. Supportive family serves as protective factor. Progress Toward Goals/Plan:: Pt demonstrating progress with increased willingness to identify and create a plan of action that will help reduce stressors currently in her life. Pt also showing progress with challenging negative thought patterns and using healthy coping skills. Pt to continue IOP to maintain gains and prevent decompensation. Time Stopped:: 13:00
--- NOTE | 2017-03-25 11:58 | BH.SGPN ---
Service Group Progress Note - Session Psychotherapy Session #1 Date Open:: 03/25/17 Time Started:: 09:05 Time Stopped:: 10:00 Targeted Problem #:: 1 Type of Group:: Process Goal of Group:: The goal of today's group was to check-in with client's mood, stressors, and positives, review homework and introduce topic for the day. Client Response/Progress/Benefit:: Client reported she had another medication change this week which resulted in a bad day and night. Client reported she is feeling like I am not with it. Reported she did go out with a friend as she had promised to try and get out of the house, but from her perspective the night was miserable because she was having so many side effects from the new medication. Client reported this weekend she is going to be able to reach out to her outpatient therapist who is on-call. Recognized that if the side effects continue and client starts to feel suicidal she will need to call her psychiatrist to see what other options she has. Client became tearful as talking about her medication side effects because she is not sure what to do about them. Identified feeling frustrated with the medication problems. Seemed benefit from expressing thoughts and feelings as well as receiving support from peers. Eye Contact:: Fair Motor Activity:: Restless Appearance:: Neat Speech:: Appropriate Mood:: Depressed Affect:: Flat Thoughts:: Linear, No evidence of hallucinations/delusions noted Staff Interventions:: Therapist used open-ended questions to elicit information about client's current stressors and mood state. Therapist was supportive by using active listening and reflection.
--- NOTE | 2017-03-25 14:24 | BH.SGPN_ITS ---
Service Group Progress Note - Session Psychotherapy Session #2 Date Open:: 03/25/17 - participants Time Started:: 10:17 Time Stopped:: 11:13 Targeted Problem #:: 1 Type of Group:: Illness Management Goal of Group:: To increase understanding and awareness of emotions connected to change and the impact those emotions can have on change. Client Response/Progress/Benefit:: Client responded well to session, quiet, but participating when prompted by therapist. Client appeared to connect with the quote sharing ?change can be overwhelming.? Client able to identify emotions associated with making change such as feeling lost, uncertain, and overwhelmed. Client reports she currently is having difficulty focusing, which has a negative impact on client?s ability to change. Client reports she belief she is in the contemplation stage of change as client acknowledges she needs change, but is reluctant to begin the process. Client appeared to benefit from increasing awareness of the emotions associated with making change and how these emotions impact thoughts, behaviors, and attitude towards change. Client progressing as evidenced by increased insight on personal barriers to change. Eye Contact:: Fair Motor Activity:: Appropriate Appearance:: Neat Speech:: Appropriate Mood:: Dysthymic Affect:: Congruent - became tearful Thoughts:: Linear, No evidence of hallucinations/delusions noted Staff Interventions:: Therapist facilitated group discussion about change. Therapist led the group in an activity in which the activity was utilized as a tool to increase client?s awareness of emotions connected with change. Therapist led the processing of how each emotion was associated with change. Therapist also educated clients on the stages of change and discussed emotions associated with each stage. Therapist was supportive by providing feedback and using reflective listening. Psychotherapy Session #3 Date Open:: 03/25/17 - 6 participants Time Started:: 11:20 Time Stopped:: 12:10 Targeted Problem #:: 1 Type of Group:: Functional Skills Development Goal of Group:: To identify the challenges associated with making change and identify positive outcomes that have resulted from changes made in past. Client Response/Progress/Benefit:: Client responded well to session, quiet, but participating in the activity. Client reported change can be difficult because ? I get too overwhelmed and can?t decide what to do.? Client stated making personal change is challenging as client understands she needs to make changes, but experiences ambivalence which prevents client from implementing the changes. Client reflected on times when change was positive such as when client came back to [facility] after recognizing her warning signs for depression. Client appeared to benefit from gaining awareness of the challenges associated with making personal changes as well as reflecting on a time when change had a positive outcome. Client seems to be progressing as shown by her increased willingness to challenge ambivalence, but can continue to benefit from implementing small steps to promote change. Eye Contact:: Fair Motor Activity:: Appropriate Appearance:: Neat Speech:: Appropriate Mood:: Irritable, Dysthymic Affect:: Constricted Thoughts:: Linear, No evidence of hallucinations/delusions noted Staff Interventions:: Therapist led group in an activity to help group members recognize the challenges associated with change. Therapist utilized activity as a tool to identify ways to manage changes and adapt to the challenges that ensue. Therapist facilitated group discussion about positive outcomes from change.
--- NOTE | 2017-03-28 11:57 | BH.MDN_ITS ---
Multi-Disciplinary Note - Note 60-min Individual Time Started:: 09:10 Date: 03/28/17 Purpose of session/treatment goals addressed:: Purpose of session was to assess client's current symptoms and stressors. Other topics: goal setting and decision making. Eye Contact:: Fair Motor Activity:: Restless Appearance:: Casual Speech:: Appropriate Mood:: Anxious, Depressed Affect:: Constricted, Other - tearful at times Thoughts:: Linear, Logical, No evidence of hallucinations/delusions noted Staff Interventions:: Therapist used open ended questions to elicit pt's current symptoms and stressors. Therapist reviewed previous homework from last individual session. Recapped decisional balance worksheet from last session, inquiring if pt completed task. Therapist brainstormed with pt activities and events that pt could get involved with if she chooses to be done with [facility] work in April. Therapist provided support by using active listening and providing feedback. Client Response:: Pt reported the weekend was horrible. Shared she was having increased negative side effects from her medication change. Pt reported she felt like she was crawling out of her skin, zombie like, anxious, and tightened skin. Pt shared she stopped taking the new medication yesterday afternoon because if I didn't stop that medication I would have gone to the hospital because started feeling suicidal. Pt reported she spoke to Dr. Mendoza this morning and Dr. Mendoza was fine with pt being off that medication since Dr. Mendoza see's pt Tuesday. Pt reported feeling much better today compared to the past week. Pt shared she is going to DBT group in [facility] which she identifies should be something that helps. PT reported she did think about the decision balance worksheet from last week and identified her current plan is to finish out current court dates, but not taking on any new cases or schedule any court takes past April. 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 Pt connected with therapist comments about needing activities and support to have when CASA is over so pt doesn't decide to stay in [facility] just for something to do. Pt reported in addition to DBT group she is willing to try [facility] in [place] and will identify other events and activities she can get involved with that will be relaxing for her. Risks/Concerns:: Pt reports passive thoughts of , no plan, and no intention to date. Pt seems to be doing much better emotionally since stopping her new medication. Progress Toward Goals/Plan:: Pt demonstrating progress by utilizing healthy coping skills despite not wanting to do anything when feeling effects of her new medication. Progress also noted that pt was able to use her supports to help her stay safe and not need hospitalization. Pt is continuing to make strides towards her treatment progress, recently had setback due to her medication changes that resulted in extreme side effects. Time Stopped:: 10:10
--- NOTE | 2017-03-29 11:17 | BH.SGPN_ITS ---
Service Group Progress Note - Session Psychotherapy Session #1 Date Open:: 03/29/17 Time Started:: 09:01 Time Stopped:: 09:58 Targeted Problem #:: 1 Type of Group:: Process - 7 participants. Goal of Group:: The goal of today's group was to check-in with client's mood, stressors, and positives, review homework and introduce topic for the day. Client Response/Progress/Benefit:: Client attentive throughout session and appeared to respond well during discussion portion. She provided feedback to follow participants as they reflected on current thoughts, feelings, and stressors. Additionally provided encouragement to new pants with time, patient' s, and working hard on implementing the skills learned progress as possible. Client reflected upon having particularly difficult weekend this past weekend she experienced several side effects due to being prescribed a new medication. She discussed that reminding herself of all of the progress she has made thus far as well as telling herself there is a small chance it will get better help to increase motivation and prevent from escalating to crisis situation. Displayed progress in her ability to identify the areas in which she has made progress in last 2 weeks and indicated that she is finally realizing that it takes more than just recognizing what needs to be changed by following through with the steps to change things. Reports attending a DBT group the previous night which had been a pleasant surprise. She discussed feeling both anxious and apprehensive about several upcoming changes in her life including major weight loss surgery and changes with her career. Client benefited from time spent reflecting upon strategies she has used in the past to deal with anxiety as well as progress made. Recommended continued IOP in order to maintain stability and further improve ability to challenge anxious and negative thinking patterns. Eye Contact:: Good Motor Activity:: Appropriate Appearance:: Casual Speech:: Appropriate Mood:: Euthymic, Anxious Affect:: Congruent Thoughts:: Linear, Logical, No evidence of hallucinations/delusions noted Staff Interventions:: Therapist used open-ended questions to elicit information about client's current stressors and mood state. Therapist was supportive by using active listening and reflection.
--- NOTE | 2017-03-29 14:08 | BH.TPR ---
Treatment Plan Review Date of Treatment Plan Review:: 03/29/17
--- NOTE | 2017-03-29 14:34 | BH.SGPN_ITS ---
Service Group Progress Note - Session Psychotherapy Session #2 Date Open:: 03/29/17 Time Started:: 10:10 Time Stopped:: 11:04 Targeted Problem #:: 1 Type of Group:: Illness Management - 7 Participants Goal of Group:: To increase understanding of mindfulness and explore the benefits of mindfulness and what thoughts are prohibiting group members from staying in the here and now. Client Response/Progress/Benefit:: Client entered session alert and attentive AEB nodding in agreement with peers and taking notes. Client participated in group discussion with peers about the difficulties of staying in the present moment. Client participated in group activity designed to reduce negative thoughts and current stressors. Client completed stressor worksheet and identified various stressors in her life including, ?stressing out about family , keeping depression under control, and my future as a CASA.? When therapist asked client to elaborate about her stressors she reported, ?My family is supportive but I worry that I?m causing them too much stress.? Client was able to identify the skills she has begun putting in place like, ?attending DBT classes and using the skills.? Client was also able to identify that she was able to make it through a difficult weekend without the use of her medications. Client benefitted from group by identifying current stressors in life and the impact that have on daily functioning. Progress noted in client?s ability to give credit herself for accomplishing goals. Continued treatment necessary to decrease anxiety levels. Eye Contact:: Good Motor Activity:: Appropriate Appearance:: Casual Speech:: Appropriate Mood:: Euthymic, Anxious Affect:: Full Thoughts:: Linear, Logical, No evidence of hallucinations/delusions noted Staff Interventions:: Therapist facilitated discussion about mindfulness and benefits mindfulness practice can have. Therapist led group in an experiential activity designed to reduce negative thoughts and worries and bring client into the present moment and practice techniques designed to reduce anxiety and stress. Therapist provided a worksheet to complete that asked questions about possible stressor and overwhelming thoughts that take up their attention. Therapist led in the processing of the activity, worksheet, and assisted client in connecting how when faced with overwhelming thoughts or negative self-talk and the impact it has to daily functioning. Psychotherapy Session #3 Date Open:: 03/29/17 Time Started:: 11:10 Time Stopped:: 12:05 Targeted Problem #:: 1 Type of Group:: Functional Skills Development - 7 Participants Goal of Group:: To identify the impact that negative thinking patterns has had on group members lives and how using mindfulness techniques and coping strategies can assist group members in managing overwhelming thoughts and feelings. Client Response/Progress/Benefit:: Client was again alert and attentive. Client provided support to peers. Client participated in group discussion about coping strategies to use to bring client back to the here and now. Client identified several coping strategies to use. Client created a mindfulness kit and chose a feather for its soft texture, tea because it is soothing, a shell for its reminder of the beach, a flower for her love of gardening, and a dog due to the comfort they provide her. Client created a stress ball and identified the coping strategies she would use to decrease her worries as, ?figure 8 breathing , [id number], rain, and my grandchildren,? which she reports gives her motivation to move forward and bring her venessa. Client benefitted from creating a mindfulness to that includes tangible items that can help client to remember to use positive skills that can be helpful to her identifying ruminating thoughts. Progress noted in client?s ability to identify coping skills to use and implement into daily practice. Continued treatment necessary to increase emotional regularity. Eye Contact:: Good Motor Activity:: Appropriate Appearance:: Casual Speech:: Appropriate Mood:: Euthymic Affect:: Full Thoughts:: Linear, Logical, No evidence of hallucinations/delusions noted Staff Interventions:: Therapist discussed varying coping strategies to use to reduce ruminating thoughts. Therapist provided each group member with various types of items and asked each member to select five items that represent something that would be helpful in creating awareness of warning signs and that will assist in bringing clients back to present moment. Therapist facilitated group processing of the mindfulness kits that each group member created. Therapist used open-ended questions to encourage elaboration of each time chosen for their kits. Therapist helped clients connect how the mindfulness kits can be used as a prevention tool and reminder to use mindfulness strategies.
--- NOTE | 2017-04-01 13:33 | BH.SGPN ---
Service Group Progress Note - Session Psychotherapy Session #1 Date Open:: 04/01/17 Time Started:: 09:10 Time Stopped:: 10:02 Targeted Problem #:: 1 Type of Group:: Process - 6 Participants Goal of Group:: The goal of today's group was to check-in with client's mood, stressors, and positives, review homework, and to introduce the topic of the day. Client Response/Progress/Benefit:: Client entered session alert and attentive. Client shared how it has been a, ?wild week since having med changes and the side effects.? Client shared how she had another med change and is apprehensive but it beginning to feel a little better. Client shared how she has been having difficulty sleeping and will sleep 5 hours and then wake up and get things done, but doesn?t experience feelings of tiredness throughout the day. Client reports coming to the realization and states, ?I have started to slow down and I will accomplish what I accomplish throughout the day.? Client indicated her emotion as exhausted. Client benefitted from group by receiving support from peers and sharing successes. Progress noted in client?s ability to accept what she cannot change. Continued treatment necessary to decrease depressive symptoms. Eye Contact:: Good Motor Activity:: Appropriate Appearance:: Casual Speech:: Appropriate Mood:: Euthymic Affect:: Full Thoughts:: Linear, Logical, No evidence of hallucinations/delusions noted Staff Interventions:: Therapist used open-ended questions to elicit information about client's current stressors and mood. Therapist was supportive by using active listening and reflection. Psychotherapy Session #2 Date Open:: 04/01/17 Time Started:: 10:15 Time Stopped:: 11:06 Targeted Problem #:: 1 Type of Group:: Illness Management - 9 Participants Goal of Group:: To increase understanding of resilience and the importance of looking at problems in different ways. Client Response/Progress/Benefit:: Client entered session alert and attentive. Client was quiet the majority of the group but provided support to peers. Client participated in group activity that allowed client to use problem solving skills in an area that may appear impossible but once working as a group and using different perspectives to solve the problem client was able to successfully complete activity. Client benefitted from group by gaining greater awareness of how one?s outlook can impact mental health. Progress noted in client?s ability to increase awareness of thoughts and the impact they can have. Continued treatment necessary to decrease depressive symptoms. Eye Contact:: Good Motor Activity:: Appropriate Appearance:: Casual Speech:: Appropriate Mood:: Euthymic Affect:: Full Thoughts:: Linear, Logical, No evidence of hallucinations/delusions noted Staff Interventions:: Therapist facilitated discussion about resilience and the importance of being resilient in the face of adversity. Therapist led group in an activity that would initially seem impossible to complete, but once group members looked at the problem in a different way they would be able to see alternative solutions. Therapist utilized the activity as a tool to discuss overcoming those situations that seem impossible to get through.
--- NOTE | 2017-04-06 15:23 | BH.SGPN_ITS ---
Service Group Progress Note - Session Psychotherapy Session #2 Date Open:: 04/06/17 - 10 group members Time Started:: 10:25 Time Stopped:: 11:19 Targeted Problem #:: 1 Type of Group:: Functional Skills Development Goal of Group:: To increase understanding of what conflict is and increase awareness of how group members manage conflict. Client Response/Progress/Benefit:: Client responded well to session, quiet, but participating when prompted by therapist. Client reported she utilizes the accommodating type when dealing with conflict. Client shared, ?I will put others before myself.? Client reflected that although this style keeps the peace, ?I don?t get my needs met.? Client shared she has been trying to promote her needs more, especially at work. Client appeared to benefit from increases awareness of ways to appropriately manage conflict. Client seems to be progressing as shown by her report of increased self-advocacy, but can continue to benefit from coping skill maintenance. Eye Contact:: Good Motor Activity:: Appropriate Appearance:: Neat Speech:: Appropriate Mood:: Dysthymic Affect:: Flat Thoughts:: Linear, No evidence of hallucinations/delusions noted Staff Interventions:: Therapist facilitated discussion about conflict and conflict resolution. Therapist led group in an activity in which group members had to identify their initial response to conflict and how their response changes based on different situations. Therapist assisted clients with connecting the impact current conflict style has on their mental health. Psychotherapy Session #3 Date Open:: 04/06/17 - 9 group members Time Started:: 11:25 Time Stopped:: 12:15 Targeted Problem #:: 1 Type of Group:: Functional Skills Development Goal of Group:: To identify what contributes positively and negatively to con flict and appropriate ways to manage conflict with others. Client Response/Progress/Benefit:: Client responded well to session, active participant. Client reported her group was successful with managing conflict because ?we focused on the big picture? and listened to one another. Client helped the group develop strategies to effectively manage conflict which included managing one?s emotions, managing stress, acceptance, and taking breaks. Client appeared to benefit from increased awareness of ways to effectively manage conflict. Client seems to be progressing with increased awareness of how her communication and conflict resolution style impacts her mental health, but can benefit from implementing these strategies daily. Eye Contact:: Good Motor Activity:: Appropriate Appearance:: Neat Speech:: Appropriate Mood:: Dysthymic Affect:: Flat Thoughts:: Linear, No evidence of hallucinations/delusions noted Staff Interventions:: Therapist facilitated group activity in which group members were provided with materials and had to eliminate certain items with consensus from group. Therapist processed activity, helping clients connect throughout activity strategies each person used to manage conflict. Therapist led discussion about what contributes to conflict in a positive or negative manner. Therapist facilitated discussion about conflict resolution strategies an d provided group member with a handout about effective ways to manage conflict.
--- NOTE | 2017-04-08 12:40 | BH.MDN ---
Multi-Disciplinary Note - Note 30-min Individual Time Started:: 12:20 Date: 04/08/17 Purpose of session/treatment goals addressed:: Purpose of session was to assess current symptoms and stressors. Other topics: discussing aftercare plans. Eye Contact:: Good Motor Activity:: Appropriate Appearance:: Neat Speech:: Appropriate Mood:: Euthymic, Anxious Affect:: Congruent Thoughts:: Linear, Logical, No evidence of hallucinations/delusions noted Staff Interventions:: therapist used open ended questions to elicit pt's current symptoms and stressors. Therapist reviewed pt's treatment progress since entering [facility]. Therapist led discussion about pt's plan for aftercare. Discussed strategies that will help pt maintain success. Provided support by using active listening. Client Response:: Pt reported things are continuing to improve and she is feeling more stable emotionally. Pt shared she is continuing to have ups and downs with medications, but believes she is handling frustrations with that really well by staying positive and using healthy skills. Pt able to note how far she has come since entering [facility]. Recognizes she has been able to manage stressors more effectively compared to the past and has been able to challenge her negative thoughts on a more consistent basis. Pt reported she will continue attending DBT group on Mondays and plans to attend at least one group at the [facility] in [place]. Pt reported she will refer back to her decisional balance worksheet when making final decision about CASA next month. Pt shared she recognizes need to focus on what is going to be most beneficial for her to maintain stability. Pt more open to trying new things and setting boundaries with iraida things that continue to bring her down. Pt able to identify various strateiges that will help her maintain success which included: communication, using supports, engaging in activities she enjoys, setting boundaries, and getting out of the house. Risks/Concerns:: Pt denies current thoughts of suicide, plan or intention. pt continues to have passive thoughts of at times. Is future focused and has positive supports in place. Progress Toward Goals/Plan:: Pt has demonstrated progress with decreased depressive and anxious symptoms. Pt is better able to reframe her negative thought patterns. Pt has been able to manage various stressors by using healthy coping skills, communicating her needs and challenging negative thoguhts. Pt has showed consistent progres sand increased mood stability. Plan is for pt to discharge from [facility] on 04/11/16. Time Stopped:: 12:50
--- NOTE | 2017-04-08 14:59 | BH.SGPN ---
Service Group Progress Note - Session Psychotherapy Session #1 Date Open:: 04/08/17 Time Started:: 09:05 Time Stopped:: 10:00 Type of Group:: Process - 6 group members Goal of Group:: The goal of today's group was to check-in with client's mood, stressors, and positives, review homework and introduce topic for the day. Client Response/Progress/Benefit:: Pt was an active member in group discussion. Emotion of the day is apprehensive. Shared that she has a migraine and is continuing to struggle with medication changes. Positive check-in stating that she is taking things day by day and living in the present. States that catastrophizing or creating problems which may occur is not beneficial. 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 Group provided support. Progress noted in that she is utilizing thought reframing strategies and mindfullness skills. Eye Contact:: Fair Motor Activity:: Appropriate Appearance:: Neat Speech:: Appropriate Mood:: Depressed Affect:: Flat Thoughts:: Linear, Logical, No evidence of hallucinations/delusions noted Staff Interventions:: Therapist used open-ended questions to elicit information about client's current stressors and mood state. Therapist was supportive by using active listening and reflection.
--- NOTE | 2017-04-11 14:53 | BH.SGPN_ITS ---
Service Group Progress Note - Session Psychotherapy Session #2 Date Open:: 04/08/17 Time Started:: 10:13 Time Stopped:: 11:10 Targeted Problem #:: 1 Type of Group:: Illness Management Goal of Group:: The goal of group was to increase understanding of goals and goal setting and practice a method of goal setting. Client Response/Progress/Benefit:: Pt listened attentively to others, contributed if encouraged by therapist. Pt vertablized she agreed with others commments about goals being important because gives direction and purpose. Pt shared a barrier to following through with goals includes fear of failing and lack of motivation. During activity pt tended to be passive, going along with others suggestions and ideas. When processing activity pt recognized the importance of setting manageable goals because feel more accomplished and motivated after being successful. Seemed to benefit from reviewing importance of goal setting. Eye Contact:: Fair Motor Activity:: Appropriate Appearance:: Neat Speech:: Appropriate Mood:: Euthymic Affect:: Constricted Thoughts:: Linear, Logical, No evidence of hallucinations/delusions noted Staff Interventions:: Therapist facilitated group discussion about goals and goal setting. Therapist taught group the acronym SMART (Specific, Measurable, Achievable, Realistic, Timely) as a tool to help with goal setting. Therapist led the group in an activity to be used as a method of practicing goal setting. Therapist guided the group through the SMART acronym as group was participating in activity. Therapist assisted group members with connecting the importance of making small, realistic goals. Psychotherapy Session #3 Date Open:: 04/08/17 Time Started:: 11:15 Time Stopped:: 12:05 Targeted Problem #:: 1 Type of Group:: Functional Skills Development Goal of Group:: The goal of group was to identify a goal for the weekend, explore the potential barriers to achieving that set goal, and identify strategies to overcome barriers. Client Response/Progress/Benefit:: Pt contributed to discussion and listened attentively to others. 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 Pt reported this will benefit her by giving her more time to focus on current cases without adding additional stress. Also will benefit by reducing anxiety. Pt identified barriers to include: guilt associated with letting others down for not taking more cases, not having as much to do, and constant emails about new cases that make her want to take on more. Pt identified things she can do to combat the barriers include: speaking with her supervisor [employer], increasing extracurriculars, and only reading pertient information from emails. Pt seemed to benefit from creating a SMART goal and identifying what can help her overcome identified barriers. Eye Contact:: Good Motor Activity:: Appropriate Appearance:: Neat Speech:: Appropriate Mood:: Euthymic Affect:: Constricted Thoughts:: Linear, Logical, No evidence of hallucinations/delusions noted Staff Interventions:: Therapist facilitated group activity in which group members identified a goal to work on over the next week. Therapist asked group members to identify barriers to achieving identified goal and strategies to help them achieve their goal. Therapist led group in processing their goal maps , assisting clients with establishing SMART goals. Therapist provided support by using reflective listening.
--- NOTE | 2017-04-11 15:43 | BH.SGPN ---
Service Group Progress Note - Session Psychotherapy Session #1 Date Open:: 18 - 7 group members Time Started:: 09:05 Time Stopped:: 10:15 Targeted Problem #:: 1 Type of Group:: Process Goal of Group:: The goal of today's group was to check-in with clients and review homework from previous group session. Client Response/Progress/Benefit:: Client responded well to session, active participant and providing supportive statements to peers. Client reports feeling encouraged today as it is client's last day of IOP. Client reflected on her progress, noting she has improved with reframing her outlook and challenging negative thoughts. Client reported I have a lot of positives to look forward to and I have been working hard to implement the skills I've learned. Client also shared she plans to continue to prioritize self-care by setting boundaries at work and use radical acceptance. Client appeared to benefit from identifying progress she has made during IOP and receiving supportive statements. Eye Contact:: Good Motor Activity:: Appropriate Appearance:: Neat Speech:: Appropriate Mood:: Euthymic Affect:: Full Thoughts:: Linear, No evidence of hallucinations/delusions noted Staff Interventions:: Therapist inquired about each group member?s previous night and current mood state. Therapist reviewed the group member?s homework from previous group session with the group, asking open ended questions to get more information.
--- NOTE | 2017-04-17 12:52 | BH.MDN_ITS ---
Multi-Disciplinary Note - Note 30-min Individual Time Started:: 12:20 Date: 04/08/17 Purpose of session/treatment goals addressed:: Purpose of session was to assess current symptoms and stressors. Other topics: discussing aftercare plans. Eye Contact:: Good Motor Activity:: Appropriate Appearance:: Neat Speech:: Appropriate Mood:: Euthymic, Anxious Affect:: Congruent Thoughts:: Linear, Logical, No evidence of hallucinations/delusions noted Staff Interventions:: therapist used open ended questions to elicit pt's current symptoms and stressors. Therapist reviewed pt's treatment progress since entering [facility]. Therapist led discussion about pt's plan for aftercare. Discussed strategies that will help pt maintain success. Provided support by using active listening. Client Response:: Pt reported things are continuing to improve and she is feeling more stable emotionally. Pt shared she is continuing to have ups and downs with medications, but believes she is handling frustrations with that really well by staying positive and using healthy skills. Pt able to note how far she has come since entering [facility]. Recognizes she has been able to manage stressors more effectively compared to the past and has been able to challenge her negative thoughts on a more consistent basis. Pt reported she will continue attending DBT group on Mondays and plans to attend at least one group at the [facility] in [place]. Pt reported she will refer back to her decisional balance worksheet when making final decision about CASA next month. Pt shared she recognizes need to focus on what is going to be most beneficial for her to maintain stability. Pt more open to trying new things and setting boundaries with iraida things that continue to bring her down. Pt able to identify various strateiges that will help her maintain success which included: communication, using supports, engaging in activities she enjoys, setting boundaries, and getting out of the house. Risks/Concerns:: Pt denies current thoughts of suicide, plan or intention. pt continues to have passive thoughts of at times. Is future focused and has positive supports in place. Progress Toward Goals/Plan:: Pt has demonstrated progress with decreased depressive and anxious symptoms. Pt is better able to reframe her negative thought patterns. Pt has been able to manage various stressors by using healthy coping skills, communicating her needs and challenging negative thoguhts. Pt has showed consistent progres sand increased mood stability. Plan is for pt to discharge from [facility] on 04/11/16. Time Stopped:: 12:50
--- NOTE | 2017-04-20 12:32 | BH.AFTERPLAN ---
Aftercare Plan - Demographics Treatment End Date:: 04/11/17 Psychiatrist:: Batsheva Piedra Psychiatrist Office #:: [phone] [facility] Therapist:: Rosamaria Sandoval Therapist Phone #:: [phone] - Medications Home Medications: Home Medications Pantoprazole Sodium [Protonix] 40 mg PO BID 03/20/15 Ranitidine [Zantac] 150 mg PO BID 03/20/15 Cholecalciferol (Vitamin D3) [Vitamin D3] 5,000 unit PO DAILY 04/22/15 Fluoxetine [Prozac] 60 mg PO DAILY 07/09/16 Brexpiprazole [Rexulti] 2 mg PO DAILY 03/11/17 Zolpidem Tartrate [Ambien Cr] 6.25 mg PO QHS 03/11/17 - Plan Details Progress/Aftercare Plan Details:: You have made progress with decreased depressive and anxious symptoms. You have shown improvement with being able to recognize and defeat negative thought patterns. Overall you are able to better manage stressors by utilizing your healthy coping skills. Remember to continue to use your support system and refer back to your healthy coping skills when in need. Strategies for Success:: 1. Reviewing skills from IOP binder. 2. Have a balanced schedule of need to do and wants. 3. Continue DBT group. 4. Try support groups like the [facility]. 5. Communicate, Communicate, Communicate!!!!!! 6. Boundaries! 7. Recognizing warning signs and communicate to others what you are noticing so can be proactive vs. reactive. 8. Continue to recognize and challenge negative thought patterns. 9. Decisional Balance Worksheet - use this when need to make a tough decision. Allows you to step back and see the potential outcomes. - Appointments Appointments/Referrals to Other Services:: 1. Dr. Mendoza on 04/26/17 for medication management. 2. Shanta Pérez on 04/20/17 at 6pm for counseling.
--- NOTE | 2017-04-20 12:53 | BH.IGGP_ITS ---
Aftercare Plan - Demographics Treatment End Date:: 04/11/17 Psychiatrist:: Batsheva Piedra Psychiatrist Office #:: [phone] [facility] Therapist:: Rosamaria Sandoval Therapist Phone #:: [phone] - Medications Home Medications: Home Medications Pantoprazole Sodium [Protonix] 40 mg PO BID 03/20/15 Ranitidine [Zantac] 150 mg PO BID 03/20/15 Cholecalciferol (Vitamin D3) [Vitamin D3] 5,000 unit PO DAILY 04/22/15 Fluoxetine [Prozac] 60 mg PO DAILY 07/09/16 Brexpiprazole [Rexulti] 2 mg PO DAILY 03/11/17 Zolpidem Tartrate [Ambien Cr] 6.25 mg PO QHS 03/11/17 - Plan Details Progress/Aftercare Plan Details:: You have made progress with decreased depressive and anxious symptoms. You have shown improvement with being able to recognize and defeat negative thought patterns. Overall you are able to better manage stressors by utilizing your healthy coping skills. Remember to continue to use your support system and refer back to your healthy coping skills when in need. Strategies for Success:: 1. Reviewing skills from IOP binder. 2. Have a balanced schedule of need to do and wants. 3. Continue DBT group. 4. Try support groups like the [facility]. 5. Communicate, Communicate, Communicate!!! !!! 6. Boundaries! 7. Recognizing warning signs and communicate to others what you are noticing so can be proactive vs. reactive. 8. Continue to recognize and challenge negative thought patterns. 9. Decisional Balance Worksheet - use this when need to make a tough decision. Allows you to step back and see the potential outcomes. - Appointments Appointments/Referrals to Other Services:: 1. Dr. Mendoza on 04/26/17 for medication management. 2. Shanta Pérez on 04/20/17 at 6pm for counseling.
== END 2017-04-11 14:00 | disposition home or self-care (01) ==
LOC: BHIOP 08:48
PROVIDERS: Visit Provider Psychiatry & Neurology Psychiatry
DX: F31.4 Bipolar disorder, current episode depressed, severe, without psychotic features (principal); F60.3 Borderline personality disorder; F43.10 Post-traumatic stress disorder, unspecified; F41.9 Anxiety disorder, unspecified
CPT/HCPCS: H0035; 90832; 90834; 90837; 90853